=== PATIENT | female | born 1955 | race Caucasian/White ===

== ENCOUNTER 2016-12-19 08:08 | Day surgery (SDC) | payer OTHER ==
[~2016-12-19] VITALS: Ht 152.4 cm; Wt 74.7 kg
[2016-12-19] MEDS ORDERED: SITA25TA3 PO (09:17)
[2016-12-19] MEDS ORDERED: MULT-761 PO (09:17)
[2016-12-19] MEDS ORDERED: LEVO25TA53 PO (09:17)
[2016-12-19] MEDS ORDERED: AMLO1CAP14 PO (09:17)
[2016-12-19] MEDS ORDERED: ASPI81TA3 PO (09:17)
[2016-12-19 09:46] VITALS: BP 128/60; PULSE 87; RESP 15
[2016-12-19] MEDS ORDERED: LIDOCAINE 100 MG SYRINGE ONE (09:51)
[2016-12-19] MEDS ORDERED: PROPOFOL 20 ML ONE ×3 (09:51→09:52)
[2016-12-19 11:11] VITALS: BP 118/69; PULSE 81; RESP 18
--- NOTE | 2016-12-19 12:05 | GILP ---
DATE OF PROCEDURE: NAME OF PROCEDURES: Colonoscopy and biopsy. SURGEON: Sapphire Cardoso MD PREOPERATIVE DIAGNOSIS: Screening colonoscopy. POSTOPERATIVE DIAGNOSES 1. Colonoscopy all the way to the cecum. 2. Small sigmoid colon polyp was removed using the biopsy forceps. 3. Internal hemorrhoids. INDICATION FOR THE PROCEDURE: Ms. Sri Rudolph is a 61-year-old female patient who had history o f rectal bleeding. She never had screening colonoscopy. The patient was scheduled for colonoscopy for further evaluation. The procedure and possible complications were well explained to the patient. The patient understood and consented to the procedure. DESCRIPTION OF PROCEDURE: Under the influence of anesthesia, the colonoscope was carefully introduc ed in the rectum and under direct vision, it was advanced all the way to the cecum. FINDINGS: The patient had a sigmoid colon polyp and it was removed using the biopsy forceps. She w as noted to have internal hemorrhoids. She tolerated the procedure very well and there was no complication from the procedure. At the end of the procedures, she was awake with stable vital signs and she was discharged home to the care of her family. IMPRESSION: 1. Colonoscopy all the way to the cecum. 2. Sigmoid colon polyp was removed using the biopsy forceps. 3. Internal hemorrhoids. PLAN: 1. Await histopathology report. 2. Next screening colonoscopy in 10 years. Dictated By: SAPPHIRE WEEMS/GABRIEL Conf#: [id number] DID#: [id number]
== END 2016-12-19 11:36 | disposition home or self-care (01) ==
LOC: GIL 08:08
PROVIDERS: ATTEND Internal Medicine Gastroenterology
DX: Z12.11 Encounter for screening for malignant neoplasm of colon (principal); D12.5 Benign neoplasm of sigmoid colon; K64.8 Other hemorrhoids; E11.9 Type 2 diabetes mellitus without complications; E03.9 Hypothyroidism, unspecified; I10 Essential (primary) hypertension; E78.5 Hyperlipidemia, unspecified; E66.9 Obesity, unspecified; Z68.32 Body mass index [BMI] 32.0-32.9, adult
CPT/HCPCS: 45380; 82962; 88305; J2001; Z7610